=== PATIENT | female | born 2000 | race Caucasian/White ===

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

== ENCOUNTER 2020-04-30 23:21 | Emergency (ER) | payer OTHER ==
[~2020-04-30] VITALS: Ht 162.6 cm; Wt 51.0 kg
--- NOTE | 2020-04-30 23:38 | NUR ---
PT NAYLA JOVEL FROM [facility] ON L2K FOR COMMENTS ABOUT SI. PT DENIES SI/HI UPON ARRIVAL TO [facility] ED. PT BELONGINGS COLLECTED AND PLACED INTO 1 OF 1 BELONGING BAGS. PT ROOM SECURED FOR PT AND STAFF SAFETY. DR SALINAS TO PT ROOM FOR PT HISTORY AND ASSESSMENT. PT COOPERATIVE AT THIS TIME AND VERBALIZES UNDERSTANDING OF ER PROCESS AND POC. AWAITING ORDERS AT THIS TIME.
--- NOTE | 2020-05-01 00:40 | NUR ---
pt ambulates to restroom with steady gait to provide urine sample.
[2020-05-01 00:58] LABS: HCG UR SG 1.034 (1.003-1.030)
[2020-05-01 01:10] LABS: AMPHETAMINE SCREEN, URINE Negative (Negative); BARBITURATE SCREEN, URINE Negative (Negative); BENZODIAZEPINE SCREEN, URINE Negative (Negative); CANNABINOID SCREEN, URINE Negative (Negative); COCAINE SCREEN, URINE Negative (Negative); METHADONE SCREEN, URINE Negative (Negative); OPIATE SCREEN, URINE Negative (Negative)
--- NOTE | 2020-05-01 01:15 | NUR ---
pt resting in [facility] at this time; elayne. sitter outside of room for direct observation of pt.
--- NOTE | 2020-05-01 02:28 | NUR ---
pt resting in hospital bed at this time. pt educated on need to stay in hospital for reevalution of mental state tomorrow and pt verbalizes understanding. pt has sitter outside of pt room for direct observation of pt at this time. pt denies any needs at this moment.
--- NOTE | 2020-05-01 03:23 | NUR ---
pt asleep in hospital bed at this time with sitter outside of room for direct observation of pt. elayne.
--- NOTE | 2020-05-01 05:39 | NUR ---
PT ASLEEP IN HOSPITAL BED AT THIS TIME WITH SITTER OUTSIDE OF ROOM FOR DIRECT OBSERVATION OF PT. JENNY. MEAL TRAY ORDERED FOR PT BREAKFAST.
--- NOTE | 2020-05-01 05:52 | NUR ---
TP: FAXXED TO [facility]. KOBI WILL REVIEW FAX AND CALL BACK
--- NOTE | 2020-05-01 07:00 | NUR ---
REPORT RECIEVED FROM NOC SANDRA ANAYA, PT RESTING ON HOSPITAL BED AT THIS TIME, VISIBLE CHEST RISE AND FALL NOTED, NAD, SI PRECAUTIONS IN PLACE
--- NOTE | 2020-05-01 08:15 | NUR ---
PT PROVIDED WITH MEAL TRAY, NO OTHER NEEDS STATED AT THIS TIME. ERMD UPDATED PT STATUS, NEEDS LABS ORDERED. ORDERS RECIEVED. TP RN UPDATED
[2020-05-01 08:26] LABS: BASOPHILS # (AUTO) 0.07 x10^3/uL (0-0.3); BASOPHILS % (AUTO) 1 % (0-1); EOSINOPHILS # (AUTO) 0.33 x10^3/uL (0-0.8); EOSINOPHILS % (AUTO) 6 % (1-7); LYMPHOCYTES # (AUTO) 2.15 x10^3/uL (1-6.1); LYMPHOCYTES % (AUTO) 36 % (22-44); MD NO; MEAN CORPUSCULAR HEMOGLOBIN 29.1 pg (27.0-34.8); MEAN CORPUSCULAR HGB CONC 32.5 g/dL (32.4-35.8); MEAN CORPUSCULAR VOLUME 89.5 fL (80-100); MEAN PLATELET VOLUME 8.1 fL (7.4-10.4); MONOCYTES # (AUTO) 0.54 x10^3/uL (0-1.4); MONOCYTES % (AUTO) 9 % (2-9); NEUTROPHILS # (AUTO) 2.93 x10^3/uL (1.8-8.0); NEUTROPHILS % (AUTO) 49 % (42-75); PLATELET COUNT 251 x10^3/uL (130-400); RED BLOOD COUNT 4.92 x10^6/uL (3.82-5.3); RED CELL DISTRIBUTION WIDTH 13.4 % (9.6-15.2)
[2020-05-01 08:36] LABS: ALANINE AMINOTRANSFERASE 24 U/L (12-78); ANION GAP 5 mmol/L (5-15); CALCIUM 9.3 mg/dL (8.5-10.1); CHLORIDE 112 mmol/L (98-107)
[2020-05-01 08:37] LABS: SALICYLATE LEVEL < 1.7 mg/dL (2.8-20.0)
[2020-05-01 08:47] LABS: ALKALINE PHOSPHATASE 73 U/L (45-117); BILIRUBIN,TOTAL 0.3 mg/dL (0.2-1.0); TOTAL PROTEIN 8.4 g/dL (6.4-8.2)
--- NOTE | 2020-05-01 09:14 | NUR ---
[facility] [employer] [facility], [phone] PLEASE CALL IF PT CAN HAVE VISITOR
--- NOTE | 2020-05-01 10:05 | NUR ---
REPORT RECEIVED FROM JACLYN Cullen RN. PT IN SECURE ROOM WITH SITTER AT DOOR. MEAL TRAY REQUESTED FROM DIETARY.
--- NOTE | 2020-05-01 10:21 | NUR ---
PT UPDATED ON POC, AWAITING SWINE EXTENSION FIELD SPECIALIST. PT COOPERATIVE WITH CARE. PT REQUESTING TO USE PHONE TO CALL HER MOTHER. CONT WITH SITTER AT DOOR.
[2020-05-01 10:22] VITALS: BP 113/77
--- NOTE | 2020-05-01 11:46 | NUR ---
PT DOZING INTERMITTENTLY. CONT IN SECURE ROOM WITH SITTER AT DOOR. COOPERATIVE WITH CARE. DENIES SI AT THIS TIME.
--- NOTE | 2020-05-01 12:15 | NUR ---
PT SEEN BY TREVOR TRAFFIC ANALYST, PT TO BE DC'D. PT AMB TO BR, GAIT STEADY.
--- NOTE | 2020-05-01 13:16 | NUR ---
PTS MOTHER IN WAITING ROOM. PT GIVEN 1 BAG OF BELONGINGS. PT AWARE OF WAITING FOR DC PAPERWORK.
--- NOTE | 2020-05-01 13:29 | NUR ---
NO IV TO DC. REVIEWED DC INSTRUCTIONS WITH PT. UNDERSTANDING VERBALIZED. PT LEFT AMB, GAIT STEADY. PT TO CALL HER MOTHER FOR TRANSPORT HOME.
== END 2020-05-01 13:32 | disposition home or self-care (01) ==
LOC: ED 05-01 02:06
DX: F32.1 Major depressive disorder, single episode, moderate (principal); J45.909 Unspecified asthma, uncomplicated
CPT/HCPCS: 36415; 80053; 80307; 81025; 84443; 85025; 99284